=== PATIENT | female | born 1975 | race African-American/Black ===

== ENCOUNTER 2022-04-18 12:20 | Emergency (ER) | payer OTHER ==
[~2022-04-18] VITALS: Ht 170.2 cm; Wt 90.7 kg
[2022-04-18 12:35] VITALS: BP 138/98
[2022-04-18] MEDS ORDERED: KETOROLAC 30 MG/ML VIAL IM ONE (12:55)
--- NOTE | 2022-04-18 13:10 | NUR ---
SLING AND ICE PACK APPLIED TO RIGHT SHOULDER
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
[2022-04-18 13:11] VITALS: BP 138/98
[2022-04-18] MEDS ORDERED: CYCL-711 PO (13:20)
[2022-04-18] MEDS ORDERED: IBUP-2213 PO (13:20)
[2022-04-18] MEDS ORDERED: LID5T TP (13:20)
--- NOTE | 2022-04-18 13:30 | NUR ---
Patient discharged with v/s stable. Written and verbal after care instructions given and explained. Patient verbalized understanding. Ambulatory with steady gait. All questions addressed prior to discharge. Advised to follow up with PMD.
== END 2022-04-18 13:30 | disposition home or self-care (01) ==
LOC: MED 12:20
DX: M25.511 Pain in right shoulder (principal); M54.50 Low back pain, unspecified; E03.9 Hypothyroidism, unspecified; V49.88XA Car occupant (driver) (passenger) injured in other specified transport accidents, initial encounter; Y93.89 Activity, other specified; Y92.89 Other specified places as the place of occurrence of the external cause; Y99.8 Other external cause status
CPT/HCPCS: 96372; 99283; J1885

== ENCOUNTER 2022-08-16 23:06 | Emergency (ER) | payer OTHER ==
[~2022-08-16] VITALS: Ht 165.1 cm; Wt 97.1 kg
[~2022-08-16 23:06] MED LIST: CYCL-711 PO; IBUP-2213 PO; LID5T TP
--- NOTE | 2022-08-16 23:12 | NUR ---
PT TO BED 5 AMBULATORY FOR TRIAGE, AT BEDSIDE.
[2022-08-16 23:13] VITALS: BP 130/82
[2022-08-16] MEDS ORDERED: NACL 0.9% 2,000 ML IV ONE (23:20)
[2022-08-16] MEDS ORDERED: KETOROLAC 30 MG/ML VIAL IVP ONE (23:20)
[2022-08-16] MEDS ORDERED: PIPERACILLIN/TAZOBACTAM 3.375 GM in DEXTROSE 5% 50 ML IV ONE (23:20)
[2022-08-16] MEDS ORDERED: PIPERACILLIN/TAZOBACTAM 3.375 GM VIAL IV ONE (23:45)
--- NOTE | 2022-08-16 23:55 | NUR ---
Urine and blood collected and sent to lab
--- NOTE | 2022-08-17 00:02 | NUR ---
Pt taken to CT
[2022-08-17 00:06] LABS: BASOPHILS # (AUTO) 0.1 K/uL (0.00-0.22); BASOPHILS % (AUTO) 0.6 % (0.0-2.0); EOSINOPHILS # (AUTO) 0.2 K/uL (0-0.4); EOSINOPHILS % (AUTO) 1.4 % (0.0-4.0); HEMATOCRIT 40.4 % (36-48); HEMOGLOBIN 13.2 g/dL (12.0-16.0); LYMPHOCYTES # (AUTO) 3.1 K/uL (2.5-16.5); MEAN CORPUSCULAR HEMOGLOBIN 30 pg (27-31); MEAN CORPUSCULAR HGB CONC 33 g/dL (33-37); MEAN CORPUSCULAR VOLUME 93.2 fL (80-94); MONOCYTES # (AUTO) 0.5 K/uL (0.8-1.0); MONOCYTES % (AUTO) 4.8 % (1.7-9.3); NEUTROPHILS # (AUTO) 7.5 K/uL (1.8-7.7); NEUTROPHILS % (AUTO) 66.2 % (42.2-75.2); PLATELET COUNT (AUTO) 333 K/uL (140-450); RED BLOOD CELL COUNT(AUTO) 4.33 MIL/uL (4.20-5.40); RED CELL DISTRIBUTION WIDTH 13.8 % (11.6-13.7); WHITE BLOOD COUNT (AUTO) 11.3 K/uL (4.8-10.8)
[2022-08-17 00:11] LABS: APPEARANCE,URINE CLEAR (CLEAR); BILIRUBIN,URINE NEGATIVE (NEGATIVE); BLOOD, URINE NEGATIVE (NEGATIVE); COLOR,URINE YELLOW (YELLOW); LEUKOCYTE ESTERASE ,URINE NEGATIVE (NEGATIVE); NITRITE, URINE NEGATIVE (NEGATIVE); UGLUCOSE NEGATIVE (NEGATIVE)
--- NOTE | 2022-08-17 00:18 | NUR ---
Pt back from CT
[2022-08-17 00:44] LABS: ALBUMIN 3.8 g/dL (3.4-5.0); ANION GAP 13.2 (8-16); CREATININE 0.8 mg/dL (0.6-1.3); POTASSIUM 4.2 mmol/L (3.5-5.1); TOTAL BILIRUBIN 0.5 mg/dL (0.0-1.0)
[2022-08-17] MEDS ORDERED: CLIN300C52 PO (02:02)
[2022-08-17] MEDS ORDERED: NAPR-54 PO (02:02)
[2022-08-17 02:11] VITALS: BP 127/67
--- NOTE | 2022-08-17 02:14 | NUR ---
Patient discharged with v/s stable. Written and verbal after care instructions given and explained. Patient verbalized understanding. Ambulatory with steady gait. New prescription for clindamycin and naproxen. All questions addressed prior to discharge. Advised to follow up with PMD.
--- NOTE | 2022-08-22 09:13 | NUR ---
LATE ENTRY -- CONFIRMED WITH NURSE NS INFUSION COMPLETED AT 0020 08/17/22 AND ZOSYN INFUSION COMPLETED AT 0055 08/17/22
== END 2022-08-17 02:09 | disposition home or self-care (01) ==
LOC: MED 23:06
DX: K12.1 Other forms of stomatitis (principal); Z98.818 Other dental procedure status; Z90.49 Acquired absence of other specified parts of digestive tract; Z79.899 Other long term (current) drug therapy; Z98.890 Other specified postprocedural states; Z90.710 Acquired absence of both cervix and uterus
CPT/HCPCS: 36415; 70486; 71045; 80053; 81003; 81025; 83605; 85025; 87040; 87086; 93005; 96365; 96375; 99285; J1885; J2543; J7030

== ENCOUNTER 2022-09-16 02:17 | Emergency (ER) | payer OTHER ==
[~2022-09-16] VITALS: Ht 165.1 cm; Wt 98.9 kg
[~2022-09-16 02:17] MED LIST changes: +CLIN300C52 PO; +NAPR-54 PO
[2022-09-16 02:30] VITALS: BP 126/88
--- NOTE | 2022-09-16 02:37 | NUR ---
PATIENT ESCORTED BACK TO LOBBY IN STABLE CONDITION
[2022-09-16 05:09] VITALS: BP 126/88
--- NOTE | 2022-09-16 05:09 | NUR ---
PATIENT LEFT WITHOUT BEING SEEN BY DR. RENTERIA. NO FURTHER CARE PROVIDED FOR PATIENT.
== END 2022-09-16 05:09 | disposition left against medical advice (07) ==
LOC: MED 02:17
DX: R20.0 Anesthesia of skin (principal); M79.602 Pain in left arm; M62.831 Muscle spasm of calf; M54.2 Cervicalgia; Z53.21 Procedure and treatment not carried out due to patient leaving prior to being seen by health care provider